=== PATIENT | male | born 1985 | race Two or more races ===

== ENCOUNTER 2021-08-25 23:15 | Emergency (ER) | payer MEDICAID, OTHER ==
[~2021-08-25] VITALS: Ht 165.1 cm; Wt 81.6 kg
[2021-08-26 00:36] VITALS: BP 128/86
[2021-08-26] MEDS ORDERED: KETOROLAC TROMETH 60MG/2ML VIAL IM ONE (01:45)
[2021-08-26] MEDS ORDERED: IBUP800T27 PO (02:31)
== END 2021-08-26 05:37 | disposition home or self-care (01) ==
LOC: ER 23:15
DX: M54.2 Cervicalgia (principal); V43.52XA Car driver injured in collision with other type car in traffic accident, initial encounter; Y93.89 Activity, other specified; Y92.89 Other specified places as the place of occurrence of the external cause; Y99.8 Other external cause status
CPT/HCPCS: 96372; 99283; J1885